=== PATIENT | female | born 1930 | race African-American/Black ===

== ENCOUNTER 2019-02-02 06:55 | Emergency (ER) | payer OTHER ==
[2019-02-02 07:14] VITALS: BMI 21.4
[2019-02-02 08:05] LABS: BASO % 0.7 % (0-2.0); EOS % 0.7 % (0-4.5); HEMATOCRIT 37.6 % (32.4-45.2); HEMOGLOBIN 12.2 GM/dL (10.7-15.3); LYMPH % 14.7 % (8-40); MCH 27.6 pg (25.7-33.7); MCHC 32.4 g/dl (32.0-36.0); MEAN CELL VOLUME 85.3 fl (80-96); MEAN PLT VOLUME 8.2 fl (7.5-11.1); MONO % 5.9 % (3.8-10.2); PLATELET COUNT 236 K/MM3 (134-434); RBC 4.41 M/mm3 (3.60-5.2); RDW 15.1 % (11.6-15.6); WHITE BLOOD COUNT 7.6 K/mm3 (4.0-10.0)
--- NOTE | 2019-02-02 08:13 | PDOC ---
Attending Attestation - Resident Resident Name: Urbano Harrison - ED Attending Attestation I have performed the following: I have examined & evaluated the patient, The case was reviewed & discussed with the resident, I agree w/resident's findings & plan, Exceptions are as noted - HPI HPI: 02/02/19 07:53
[2019-02-02 08:20] LABS: INR 1.08 (0.83-1.09); PROTHROMBIN TIME (PATIENT) 12.8 SEC (9.7-13.0)
[2019-02-02 08:46] LABS: ALBUMIN 3.3 g/dl (3.4-5.0); BILIRUBIN,TOTAL 0.8 mg/dL (0.2-1); BLOOD UREA NITROGEN 12.8 mg/dL (7-18); CALCIUM 8.7 mg/dL (8.5-10.1); CREATININE 0.6 mg/dL (0.55-1.3); POTASSIUM 3.8 mmol/L (3.5-5.1); TOT PROT 6.6 g/dl (6.4-8.2)
--- NOTE | 2019-02-02 08:51 | PDOC ---
History of Present Illness - General Chief Complaint: Injury Stated Complaint: FALL Time Seen by Provider: 02/02/19 07:33 History Source: Patient, EMS, Detention Records Exam Limitations: Dementia - History of Present Illness Initial Comments: 02/02/19 08:51 88y F hx of dementia, glaucoma, legally blind, hl, htn, presents wth complaint of unwitneesd fall from the [facility]. per EMS, pt fell arond 4am, but was unwitnessed. pt arrived to the ER around 7am. Upon arrival, pt is awake, bu tunalble to answer questions, but does respond to questions appropriately. pt has a small laceration on her R brow that was closed. pt noted t also have bleeding from her R eye (bloody tear), p apears to have an injury over the superior aspect of her R cornea - appears to be posible a hematoma o posible a tumor. History limited due to dementia Is this a multiple visit Asthma Patient?: No Past History - Past Medical History Allergies/Adverse Reactions: Allergies Allergy/AdvReac Type Severity Reaction Status Date / Time No Known Allergies Allergy Verified 02/02/19 07:10 Home Medications: Ambulatory Orders Metoprolol Succinate [Toprol XL -] 50 mg PO DAILY 05/13/12 Sitagliptin Phosphate [Januvia -] 50 mg PO DAILY@0700 05/13/12 Amlodipine Besylate [Norvasc -] 10 mg PO DAILY 01/07/15 Famotidine [Pepcid] 20 mg PO DAILY 01/07/15 Anemia: No Asthma: No Cancer: No Cardiac Disorders: No CVA: No COPD: No CHF: No Dementia: No Diabetes: Yes GI Disorders: Yes (GERD;HIATAL HERNIA; HEARTBURN; INTESTINAL METAPLASIA OF GASTRIC MUCOSA) Disorders: No HTN: Yes Hypercholesterolemia: Yes Liver Disease: No Seizures: No Thyroid Disease: Yes (HYPERTHYROIDISM) - Surgical History Abdominal Surgery: Yes Appendectomy: No Cardiac Surgery: No Cholecystectomy: No Lung Surgery: No Neurologic Surgery: No Orthopedic Surgery: No - Psycho Social/Smoking Cessation Hx Smoking History: Never smoked Have you smoked in the past 12 months: No Information on smoking cessation initiated: No Hx Alcohol Use: No Drug/Substance Use Hx: No Substance Use Type: None Hx Substance Use Treatment: No Review of Systems - Review of Systems Able to Perform ROS?: Yes Comments:: 02/02/19 08:51 ROS: Limited due to dementia *Physical Exam - Vital Signs Last Vital Signs Temp Pulse Resp BP Pulse Ox 97.6 F 64 18 182/153 H 100 02/02/19 07:11 02/02/19 07:11 02/02/19 07:11 02/02/19 07:11 02/02/19 07:11 - Physical Exam Comments: 02/02/19 08:51 Physical Exam: GENERAL: The patient is somnolent bu arousable to verbal command HEAD: Normocephalic, 1.5 cm laceration over lateral R orbital ridge, no focal ttp EYES: dilated pupil on R eye with bleeding (unclera source) hematoma/mass over superio raspect of R cornea, no floursicene swirling noed ENT: Normal voice, Moist mucous membranes. NECK: Normal range of motion, supple, no focal bony tenderness LUNGS: Breath sounds equal, clear to auscultation bilaterally. No wheezes, no rhonchi, no rales. HEART: Regular rate and rhythm, normal S1 and S2 without murmur, rub or gallop. ABDOMEN: Soft, nontender, No guarding, no rebound. No CVA tenderness EXTREMITIES: Normal range of motion, +1 edema b/l NEUROLOGICAL: No facial assymetry, Normal speech, moving all 4 extremities spontaneously and symmetricall PSYCH: Normal mood, normal affect. SKIN: Warm, Dry, normal turgor, Procedures - Consent Consent obtained: Unable to obtain - Laceration/Wound Repair Right Eye Wound Length: to 2.5 cm Wound Explored: clean Wound's Depth, Shape: superficial Irrigated w/ Saline: Yes Wound Debrided: minimal Wound Repaired With: Dermabond Layer Closure: No Heart Score/ECG Review - ECG Impressions Comment:: 02/02/19 08:51 Twelve-lead EKG was performed and reviewed by me. There is normal sinus rhythm with a normal rate. rate of 65 The axis is normal. The intervals are normal. There is normal R wave progression There are no ST or T wave abnormalities. Impression: Normal twelve-lead EKG ED Treatment Course - LABORATORY CBC & Chemistry Diagram: 02/02/19 07:53 02/02/19 07:53 - ADDITIONAL ORDERS Additional order review: Laboratory Results 02/02/19 02/02/1919 07:53 07:53 07:53 PT with INR 12.80 INR 1.08 Sodium 140 Potassium 3.8 Chloride 105 Carbon Dioxide 27 Anion Gap 8 BUN 12.8 Creatinine 0.6 Est GFR (CKD-EPI)AfAm 94.32 Est GFR (CKD-EPI)NonAf 81.38 Random Glucose 132 H Calcium 8.7 Total Bilirubin 0.8 AST 25 ALT 16 Alkaline Phosphatase 54 Creatine Kinase 99 Troponin I < 0.02 Total Protein 6.6 Albumin 3.3 L 02/02/19 07:53 RBC 4.41 MCV 85.3 MCHC 32.4 RDW 15.1 MPV 8.2 Neutrophils % 78.0 Lymphocytes % 14.7 Monocytes % 5.9 Eosinophils % 0.7 Basophils % 0.7 - RADIOLOGY Radiology Studies Ordered: Category Date Time Status CERVICAL SPINE CT W/O CONTR [CT] Stat CT Scan 02/02/19 07:[address] WITHOUT CONTRAST [CT] Stat CT Scan 02/02/19 07:49 Taken CHEST X-RAY PORTABLE* [RAD] Stat Radiology 02/02/19 07:50 Ordered Medical Decision Making - Medical Decision Making 02/02/19 08:51 Unclera source of bleeding - possible coneal/eye injury ct head to r/o head injuyr/bleeding cbc, cmp, trop, ekg, ua will stain with flourisciene will erassess will likely need to dw ophtho 02/02/19 09:39 no [address]irling on flourisciene ct noted for suspected intraocular hemorrhage case dw opho - recemmends transfer will [facility] 02/02/19 10:31 case was discussed with Dr. Perez ([facility] - optho) accepted for transfer and futher evluation and higher level of care approval from pts hcp obtained over the phone. The patient was seen and examined to determine medical stability. The patient is MEDICALLY STABLE at this time. Labs, EKG, radiological studies were ordered to expedite the patient's care. I certify that I have discussed with the patient and/or his customer care representative the following risks and benefits of the proposed transfer. Risks include worsening of patients condition during transport,auto accident, or permanent disability. Benefits include receiving specialized care not available at this facility. I certify that, based on the information available at this time, the medical benefits reasonably expected from the provision of appropriate medical treatment at the receiving facility outweigh the increased risk to the patient. I believe the patient/relative/guardian understands what I have explained and answered. The patient will be transferred to the service of Dr. Perez at [facility] Discharge - Discharge Information Problems reviewed: Yes Clinical Impression/Diagnosis: Ocular hemorrhage Laceration of head Qualifiers: Encounter type: initial encounter Location of open wound of head: periocular area Foreign body presence: without foreign body Laterality: right Qualified Code(s): S01.111A - Laceration without foreign body of right eyelid and periocular area, initial encounter Condition: Guarded Disposition: TRANSFER ACUTE CARE/OTHER HOSP - Admission No - Follow up/Referral Referrals: Khadijah Terry MD [Primary Care Provider] - - Patient Discharge Instructions - Post Discharge Activity - Transfer to Acute Care Facility Receiving Facility Name: [facility] Accepting Physician:: Dr. perez
[2019-02-02 09:05] LABS: PH,URINE 8.5 (5.0-8.0); URINE APPEARANCE Clear; URINE BILIRUBIN Negative (NEGATIVE); URINE COLOR Yellow; URINE GLUCOSE (UA) Negative (NEGATIVE); URINE KETONE 1+ (NEGATIVE); URINE LEUK ESTERASE Negative (NEGATIVE); URINE NITRITE Negative (NEGATIVE); URINE PROTEIN Negative (NEGATIVE); URINE UROBILINOGEN 0.2 mg/dL (0.2-1.0)
[2019-02-02] MEDS ORDERED: FLUORESCEIN NA 1 EA STRIP ONE (09:24)
[2019-02-02 10:33] VITALS: BP 160/78; PULSE 78; TEMP 98
--- NOTE | 2019-02-02 11:27 | EKG ---
Test Reason : Blood Pressure : / mmHG Vent. Rate : 065 BPM Atrial Rate : 065 BPM P-R Int : 140 ms QRS Dur : 076 ms QT Int : 424 ms P-R-T Axes : 060 037 068 degrees QTc Int : 440 ms NORMAL SINUS RHYTHM WITH SINUS ARRHYTHMIA NO PREVIOUS ECGS AVAILABLE Confirmed by JAGJIT GONZALEZ MD ([id number]) on 02/02/2019 11:27:09 AM Referred By: Confirmed By:JAGJIT GONZALEZ MD
== END 2019-02-02 10:50 | disposition short-term general hospital (02) ==
LOC: JER 06:55
PROC: 0HQ1XZZ Repair Face Skin, External Approach (ICD-10-PCS; principal; 2019-02-02)
DX: H57.89 Other specified disorders of eye and adnexa (principal); S05.41XA Penetrating wound of orbit with or without foreign body, right eye, initial encounter; W19.XXXA Unspecified fall, initial encounter; Y93.89 Activity, other specified; Y92.128 Other place in nursing home as the place of occurrence of the external cause; Y99.8 Other external cause status; I10 Essential (primary) hypertension; E78.5 Hyperlipidemia, unspecified; E11.9 Type 2 diabetes mellitus without complications; Z79.84 Long term (current) use of oral hypoglycemic drugs; E05.90 Thyrotoxicosis, unspecified without thyrotoxic crisis or storm; K21.9 Gastro-esophageal reflux disease without esophagitis; Z87.19 Personal history of other diseases of the digestive system
CPT/HCPCS: 12011-25; 36415; 70450-TC; 71045-TC-FY; 72125-TC; 80053; 81003; 82550; 84484; 85025; 85610; 93005; 93010; 99285-25